=== PATIENT | male | born 1965 | race Caucasian/White ===

== ENCOUNTER → 2018-12-24 | Outpatient (CLI) | payer OTHER ==
[~2018-12-24] MED LIST: AMLO10TA7 PO; ASPI-808 PO; GUAI400T71 PO; HYDR25TA4 PO
--- NOTE | 2018-12-24 10:57 | Diagnostic Imaging Report ---
PROCEDURE: CT chest without contrast. TECHNIQUE: Multiple contiguous axial images were obtained through the chest without the use of intravenous contrast. Auto Exposure Controls were utilized during the CT exam to meet ALARA standards for radiation dose reduction. INDICATION: Chronic cough. COPD. COMPARISON: None FINDINGS: Evaluation of the lung quick demonstrates an irregular somewhat poorly defined spiculated nodular density within the right upper lobe that measures 1.4 x 1.3 cm (image 13, series 3). There is extension of associated linear density to the pleura superolaterally. Additional punctate 3-4 mm micronodules are seen within the left upper lobe (images 8 and 12, series 3). There is no focal consolidation, large effusion, or pneumothorax. Note is made of underlying air trapping predominantly within a subpleural distribution consistent with background emphysematous disease. Cardiomediastinal structures show normal heart size. There is no large pericardial effusion. Main pulmonary arterial trunk is borderline enlarged at 3 cm in diameter. There is mild calcified aortic and coronary atherosclerosis. No pathologically enlarged or morphologically abnormal adenopathy is seen within the mediastinum, jena, nor axilla. Osseous structures show no acute abnormalities. No lytic or blastic bony lesions are seen. Included portions of the upper abdomen show hepatic steatosis and probable cholelithiasis (image 48, series 3). IMPRESSION: 1. Spiculated nodular density within the right upper lobe. Conceivably, this could be on the basis of focal scarring. However, spiculated neoplasm cannot be excluded. Given its somewhat sub-solid appearance, short interval three-month followup is recommended. The lesion may be below CT-PET threshold. 2. Additional punctate micronodules within the left upper lobe. 3. Background subpleural emphysematous disease. 4. Hepatic steatosis. 5. Probable cholelithiasis. 6. Mild calcified aortic and coronary atherosclerotic disease. Dictated by: Dictated on workstation # [id number]
== END ==
LOC: RAD 09:51
PROVIDERS: ATTEND Nurse Practitioner Family
DX: J43.9 Emphysema, unspecified (principal); J98.4 Other disorders of lung; R91.8 Other nonspecific abnormal finding of lung field; K76.0 Fatty (change of) liver, not elsewhere classified; I70.0 Atherosclerosis of aorta; I25.10 Atherosclerotic heart disease of native coronary artery without angina pectoris
CPT/HCPCS: 71250

== ENCOUNTER 2018-12-25 05:45 | Outpatient (CLI) | payer OTHER ==
[~2018-12-25] VITALS: Ht 182.9 cm; Wt 106.6 kg
[2018-12-25] MEDS ORDERED: AMLO10TA7 PO (10:35)
[2018-12-25] MEDS ORDERED: GUAI400T71 PO (10:35)
[2018-12-25] MEDS ORDERED: ASPI-808 PO (10:35)
[2018-12-25] MEDS ORDERED: HYDR25TA4 PO (10:35)
== END 2018-12-25 10:37 | disposition home or self-care (01) ==
LOC: PREOP 05:45
PROVIDERS: ATTEND Internal Medicine Critical Care Medicine
DX: Z01.818 Encounter for other preprocedural examination (principal)

== ENCOUNTER 2018-12-27 06:44 | Day surgery (SDC) | payer OTHER ==
[~2018-12-27] VITALS: Ht 182.9 cm; Wt 106.6 kg
[2018-12-27] MEDS ORDERED: LIDOCAINE PF 1% 2 ML VIAL IJ ONE (06:45)
[2018-12-27] MEDS ORDERED: LIDOCAINE JELLY 2% 6 ML SYRINGE TOP ONE (06:45)
[2018-12-27] MEDS ORDERED: LIDOCAINE PF 2% 5 ML (XYLOCAINE) VIAL INJ ONE (06:45)
[2018-12-27] MEDS ORDERED: LACTATED RINGERS 1,000 ML IV ONE (06:47)
[2018-12-27] MEDS ORDERED: LACTATED RINGERS 1,000 ML IV STA (07:09)
[2018-12-27] MEDS ORDERED: fentaNYL INJECTION 100 MCG/2 ML AMP IVP ONE (07:15)
[2018-12-27] MEDS ORDERED: MIDAZOLAM 2 MG/2 ML (VERSED) VIAL IVP ONE (07:15)
[2018-12-27 07:17] VITALS: BP 141/98
[2018-12-27] MEDS ORDERED: fentaNYL INJECTION 100 MCG/2 ML AMP ONE ×2 (07:43)
[2018-12-27] MEDS ORDERED: MIDAZOLAM 2 MG/2 ML (VERSED) VIAL ONE ×4 (07:43→07:56)
[2018-12-27] MEDS ORDERED: ONDANSETRON 4 MG/2 ML (SDV) Z0FRAN ONE (07:44)
[2018-12-27 08:30] VITALS: BP 115/70
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
[2018-12-27 09:00] VITALS: BP 131/88
--- NOTE | 2018-12-27 09:24 | Diagnostic Imaging Report ---
INDICATION: Status post bronchoscopy. TIME OF EXAM: 08:52 a.m. No prior studies are available for comparison. There is no evidence of pneumothorax, status post bronchoscopy. The lungs are clear apart from some increased density in the right upper lobe medially. There is no effusion. IMPRESSION: No evidence of pneumothorax, status post bronchoscopy. Dictated by: Dictated on workstation # [id number]
[2018-12-27 09:30] VITALS: BP 131/88
--- NOTE | 2018-12-27 14:47 | Diagnostic Imaging Report ---
INDICATION: Fluoroscopy during bronchoscopy. FINDINGS: Fluoroscopy was provided for Dr. Coombs during bronchoscopy. 28 seconds of fluoroscopy was utilized. IMPRESSION: Fluoroscopy during bronchoscopy. Dictated by: Dictated on workstation # [id number]
--- NOTE | 2019-01-16 10:57 | Pulmonary Procedures ---
Pulmonary Procedures Date of Procedure Date of Service: December 27, 2018 (Late note for 12/27) Bronch Bronchoscopy with RML bronchoalveolar lavage (BAL), transbronchial washes and, brushes. Preop DX ILD Postop DX: same Complications: none After informed consent obtained and formal time out pt was sedated using Fenta nyl and Versed. Bronchoscope was advanced through the nare and vocal cords. 1% lidocaine was used to anesthetize vocal cords, epiglottis, diaz, and left/right main stem bronchus. An anatomical tour was undertaken down to the segmental bronchi bilaterally. No endobronchial lesions noted. From the RML a bronchoalveolar lavage (BAL), transbronchial washes and, brushes were obtained. Pt tolerated procedure well. No complications noted. Stat CXR is pending. HALLE LOPEZ DO Jan 16, 2019 10:57
== END 2018-12-27 09:30 | disposition home or self-care (01) ==
LOC: ENDO 06:44
PROVIDERS: ATTEND Internal Medicine Critical Care Medicine
DX: R06.00 Dyspnea, unspecified (principal); J44.9 Chronic obstructive pulmonary disease, unspecified; F17.210 Nicotine dependence, cigarettes, uncomplicated; R06.89 Other abnormalities of breathing; R05 Cough; J30.9 Allergic rhinitis, unspecified; Z79.82 Long term (current) use of aspirin; Z79.899 Other long term (current) drug therapy
CPT/HCPCS: 71045; 87015; 87070; 87101; 87116; 87205; 87206; 88112; 88305; 88312; 94640

== ENCOUNTER → 2018-12-31 | Outpatient (CLI) | payer OTHER | LOC: CARD 12:06 | PROVIDERS: ATTEND Internal Medicine Critical Care Medicine | DX: R06.09 Other forms of dyspnea (principal); R06.89 Other abnormalities of breathing; R05 Cough; J44.9 Chronic obstructive pulmonary disease, unspecified; J30.9 Allergic rhinitis, unspecified; R91.8 Other nonspecific abnormal finding of lung field; Z72.0 Tobacco use | CPT/HCPCS: 93306 ==

== ENCOUNTER → 2019-01-22 | Outpatient (CLI) | payer OTHER ==
[2019-01-22 09:41] LABS: ABG BASE EXCESS 3.7 MMOL/L (-2.5-2.5); ABG OXYGEN SATURATION 95 % (94-100); ABG PCO2 37 MMHG (35-45); ABG PH 7.48 (7.37-7.43); ABG PO2 58 MMHG (79-93); ABG TCO2 28.7 MMOL/L (21.0-31.0); ALLENS TEST YES-POS
[2019-01-22 09:42] LABS: INSPIRED O2 0; PATIENT TEMP 96.2; VENTILATOR NO
== END ==
LOC: LAB 09:08
PROVIDERS: ATTEND Nurse Practitioner Family
DX: R91.8 Other nonspecific abnormal finding of lung field (principal); J30.9 Allergic rhinitis, unspecified; R05 Cough; R06.00 Dyspnea, unspecified; R06.89 Other abnormalities of breathing; J44.9 Chronic obstructive pulmonary disease, unspecified; Z72.0 Tobacco use
CPT/HCPCS: 36600; 82805

== ENCOUNTER → 2019-05-10 | Outpatient (CLI) | payer OTHER, BC ==
[~2019-05-10] MED LIST changes: +HOLD METFORMIN - RECEIVED CONTRAST 20 ML VIAL IV SCH; +IOHEXOL 350 MG/ML 100 ML (OMNIPAQUE 350) VIAL IV ONE; +NS 100 ML (IVPB) BAG IV ONE; +RT-ALBUTEROL SULF 2.5 MG/3 ML PRE-MIX VIAL INH ONE; +RT-ALBUTEROL SULF 2.5 MG/3 ML PRE-MIX VIAL ONE
[2019-05-10 09:12] LABS: BUN/CREATININE RATIO 17; CREATININE SERUM 0.94 MG/DL (0.60-1.30); GFR ESTIMATED > 60
--- NOTE | 2019-05-10 14:19 | Diagnostic Imaging Report ---
PROCEDURE: CT chest with contrast only. TECHNIQUE: Multiple contiguous axial images were obtained through the chest after administration of intravenous contrast. Auto Exposure Controls were utilized during the CT exam to meet ALARA standards for radiation dose reduction. INDICATION: Dyspnea, COPD Exam compared to 12/24/2018. Findings: There is a mixed density nodule in the right upper lobe with a roughly 5 mm central soft tissue component and a peripheral groundglass disease. The peripheral groundglass opacity, having improved in the interim, its central denser element may be 1 mm larger and this change is likely incidental. The process measured in aggregate in its maximal dimension, it is about 1.2 cm long axis, previously 1.4 cm. Relative stability favors benignity, continued followup recommended however repeat chest CT in 6 months' time felt appropriate. There are some micronodularity of the left upper lobe previously on the prior. Those densities show predominant resolution aside from a 2 mm persistent opacity likely incidental. No new mass is found. There is no effusion or pneumothorax no evidence for pneumonia. No thoracic lymphadenopathy. IMPRESSION: A mixed density airspace and solid irregular nodule right upper lobe shows mixed interval changes in the interim when compared to the prior, six-month followup recommended. No substantial change or adverse development. No adenopathy. No effusion. Dictated by: Dictated on workstation # [id number]
== END ==
LOC: RAD 08:37
PROVIDERS: ATTEND Nurse Practitioner Family
DX: J98.4 Other disorders of lung (principal); J30.9 Allergic rhinitis, unspecified; J44.9 Chronic obstructive pulmonary disease, unspecified; R91.8 Other nonspecific abnormal finding of lung field; R91.1 Solitary pulmonary nodule; Z72.0 Tobacco use
CPT/HCPCS: 36415; 71260; 82565; 84520

== ENCOUNTER 2019-07-16 08:21 | Day surgery (SDC) | payer OTHER, BC ==
[2019-07-16] VITALS (10 sets, daily range): BP systolic 127–148; BP diastolic 85–103
[~2019-07-16] VITALS: Ht 182 cm; Wt 105.0 kg
[~2019-07-16 08:21] MED LIST changes: -HOLD METFORMIN - RECEIVED CONTRAST 20 ML VIAL IV SCH; -IOHEXOL 350 MG/ML 100 ML (OMNIPAQUE 350) VIAL IV ONE; -NS 100 ML (IVPB) BAG IV ONE; -RT-ALBUTEROL SULF 2.5 MG/3 ML PRE-MIX VIAL INH ONE; -RT-ALBUTEROL SULF 2.5 MG/3 ML PRE-MIX VIAL ONE
[2019-07-16] MEDS ORDERED: HEParin (CATH LAB) 2,000 ML IV ONE (08:22)
[2019-07-16] MEDS ORDERED: LIDOCAINE 1% INJ 20 ML 20 ML VIAL ONE ×2 (08:22→10:02)
[2019-07-16] MEDS ORDERED: NS IV 1000 ML 1,000 ML ONE (08:22)
[2019-07-16] MEDS ORDERED: NS IV 1000 ML 1,000 ML IV SCH ×2 (08:30→10:33)
[2019-07-16] MEDS ORDERED: BUDE10.2 IH (08:46)
[2019-07-16] MEDS ORDERED: ASCO500C15 PO (08:46)
[2019-07-16] MEDS ORDERED: RT-ALBUINH IH (08:46)
[2019-07-16] MEDS ORDERED: CETI10TA23 PO (08:46)
[2019-07-16 09:00] LABS: HEMOGLOBIN 16.2 G/DL (13.3-17.7); RED CELL DISTRIBUTION WIDTH 12.6 % (10.0-14.5); WHITE BLOOD COUNT 8.3 10^3/uL (4.3-11.0)
[2019-07-16 09:12] LABS: PROTHROMBIN TIME PATIENT 13.7 SEC (12.2-14.7)
[2019-07-16 09:20] LABS: ALANINE AMINOTRANSFERASE 18 U/L (0-55); ALBUMIN 4.3 GM/DL (3.2-4.5); ALKALINE PHOSPHATASE 80 U/L (40-136); BILIRUBIN,TOTAL 0.7 MG/DL (0.1-1.0); BUN/CREATININE RATIO 14; CALCIUM 8.9 MG/DL (8.5-10.1); CARBON DIOXIDE 28 MMOL/L (21-32); CHLORIDE 104 MMOL/L (98-107); CREATININE SERUM 0.88 MG/DL (0.60-1.30); GFR ESTIMATED > 60; GLUCOSE 121 MG/DL (70-105); SODIUM 143 MMOL/L (135-145)
[2019-07-16] MEDS ORDERED: MIDAZOLAM 5 MG/5 ML (VERSED) VIAL ONE (09:23)
[2019-07-16] MEDS ORDERED: fentaNYL INJECTION 100 MCG/2 ML AMP ONE (09:23)
--- NOTE | 2019-07-16 09:24 | Cardiac Procedure Note-CS/ASA ---
Pre-Procedure Note Pre-Op Procedure Note H&P Reviewed The H&P was reviewed, patient examined and no changes noted. Date H&P Reviewed: Jul 16, 2019 Time H&P Reviewed: 09:23 Conscious Sedation Pre-Proced Time 09:23 ASA Score 3 For ASA 3 and 4: Consider anesthesia and medical clearance. Also, for patients with a history of failed moderate sedation consider anesthesia. Airway Lungs Heart ASA score ASA 1: a normal healthy patient ASA 2: a patient with a mild systemic disease (mid diabetes, controlled hypertension, obesity ASA 3: a patient with a severe systemic disease that limits activity (angina, COPD, prior Myocardial infarction) ASA 4: a patient with an incapacitating disease that is a constant threat to life (CHF, renal failure) ASA 5: a moribund patient not expected to survive 24 hrs. (ruptured aneurysm) ASA 6: a declared brain- patient whose organs are being harvested. For emergent operations, add the letter E after the classification Mallampati Classification Grade 2 Sedation Plan Analgesia, Amnesia, Plan communicated to team members, Discussed options with patient/fam, Discussed risks with patient/fam The patient is an appropriate candidate to undergo the planned procedure, sedation, and anesthesia. The patient immediately re-assessed prior to indication. LATOSHA LINDER MD FACP FAC CCDS Jul 16, 2019 09:24 POS
--- NOTE | 2019-07-16 10:36 | Discharge Inst-Cardiology ---
Discharge Inst-Cardiac Discharge Medications Continued Medications: Albuterol Sulfate (Proair Hfa) 1 Puff Puff 2 PUFF IH Q4H, PUFF 1 PUFF = 90 MCG Amlodipine Besylate (Amlodipine Besylate) 10 Mg Tablet 10 MG PO DAILY, TAB Ascorbic Acid (Vitamin C) 500 Mg Capsule.er 500 MG PO DAILY, CAP Aspirin (Aspirin) 325 Mg Tablet 325 MG PO DAILY, TAB Budesonide/Formoterol Fumarate (Symbicort 160-4.5 Mcg Inhaler) 10.2 Gm Hfa.aer.ad 2 PUFF IH BID, INHALER Cetirizine HCl (Cetirizine HCl) 10 Mg Tab.chew 10 MG PO DAILY, TAB Guaifenesin (Guaifenesin) 400 Mg Tablet 400 MG PO DAILY, TAB Hydrochlorothiazide (Hydrochlorothiazide) 25 Mg Tablet 25 MG PO DAILY, TAB Patient Instructions Patient Instructions: no smoking LATOSHA LINDER MD FACP FAC CCDS Jul 16, 2019 10:36 POS
--- NOTE | 2019-07-16 10:36 | Discharge Inst-Post CATH ---
Discharge Inst-CATH/EP Post Cardiac Cath/EP D/C Inst Follow Up/Plan F/u with Dr Mendez next week <b>CARDIAC CATH/EP PROCEDURE DISCHARGE INSTRUCTIONS</b> ACTIVITY * Go Home directly and rest. * Limit activity of the leg (or wrist if it was used) for 7 days including aerobics, swimming, jogging, bicycling, etc. * Restrict stair-climbing for 7 days if possible, if not, climb up with your non-cath leg, then bring together on the same step. * Avoid lifting, pushing, pulling or excessive movement of the affected extremity for 7 days. * Customary sexual activity may be resumed after 2 days-use caution not to use a position that strains or causes pain to the affected extremity. * No driving for 24 hours. * NO SMOKING. * Avoid straining for bowel movements for 7 days. * Gentle walking on level ground is allowed. * Returning to work will depend on the type of procedure and the results. Your doctor will discuss this with you. CALL YOUR DOCTOR FOR ANY OF THE FOLLOWING: *If bleeding from the puncture site occurs- Apply gentle pressure to site with clean cloth and call your doctor or EMS. * If a knot or lump forms under the skin, increases in size, or causes pain. * If bruising appears to be worsening or moving further down your leg instead of disappearing. * Temperature above 101 F. CARE OF YOUR GROIN INCISION; * Bruising or purple discoloration of the skin near the puncture site is common. * You may shower only, no bathtub bathing for 5 days. Be careful to avoid slipping as your leg may feel stiff. * If a closure device was used on your femoral artery, please see the attached guide regarding care of the device and your leg. * Leave dressing on FOR 24 hours. CARE OF YOUR WRIST INCISION; * Bruising or purple discoloration of the skin near the puncture site is common. * You may shower. * DO NOT submerge wrist. * Leave dressing on FOR 24 hours. LATOSHA MENDEZ MD FAC FAC CCDS Jul 16, 2019 10:36 POS
[2019-07-16] MEDS ORDERED: PATIENT MAY USE OWN MEDS, ALL PO SCH (10:45)
--- NOTE | 2019-07-16 13:04 | CARDIAC CATHETERIZATION ---
DATE OF SERVICE: 07/16/2019 CARDIAC CATHETERIZATION INDICATIONS: The patient is a 54-year-old man who has had syncope. He had multiple coronary artery disease risk factors that include chronic tobacco use and hypertension. Cardiac catheterization was carried out today to evaluate for coronary artery disease and cardiomyopathy as the potential basis for his syncope. Informed consent was obtained. DESCRIPTION OF PROCEDURE: He was brought to the cardiac catheterization laboratory in a fasting state. Right groin was prepared and draped in the usual sterile fashion. Lidocaine 1% was used for local anesthesia. Modified Seldinger technique was used to advance a 5-Comoran sheath in right femoral artery, 5-Comoran JL4.5 catheter was used for left coronary angiography. A 5-[place]or[place] JR4 catheter was used for right coronary angiography. A 5-Comoran pigtail catheter was used for left heart catheterization, left ventricular angiography. He tolerated the procedure well. Angiography of the right femoral artery was carried out through the sheath. Mynx was used to achieve hemostasis. HEMODYNAMICS: Left ventricular end-diastolic pressure following coronary angiography was 14 mmHg. There was no significant pressure gradient on pullback across the aortic valve. Ascending aortic pressure was 137/90 with a mean of 114 mmHg. CORONARY ANGIOGRAPHY: Left main coronary artery, left anterior descending artery, left circumflex artery, right coronary artery do not exhibit any angiographically significant coronary artery disease. Right coronary artery is dominant. LEFT VENTRICULAR ANGIOGRAPHY: Left ventricular angiography was carried out in right anterior oblique projection. Global left ventricular systolic function is normal. Left ventricular ejection fraction is estimated to be 55-60%. CONCLUSIONS: 1. No angiographically significant coronary artery disease. 2. Normal global left ventricular systolic function with ejection fraction 55-60%. 3. Mild elevation of left ventricular end-diastolic pressure. DISCUSSION AND RECOMMENDATIONS: Based on results of the study, it appears appropriate to continue a conservative approach. Outpatient followup is advised. For further evaluation of syncope, implantable loop recorder implantation is advised. Job ID: [id number] DocumentID: [id number] Dictated Date: 07/16/2019 10:18:35 Panel Machine Tender Date: 07/16/2019 13:04:09 Dictated By: LATOSHA LINDER MD, MA, FACP, FACC,
--- NOTE | 2019-07-16 15:37 | OPERATIVE REPORT ---
DATE OF SERVICE: 07/16/2019 PREOPERATIVE DIAGNOSIS: Syncope. POSTOPERATIVE DIAGNOSIS: Syncope. PROCEDURE: Implantable loop recorder implantation. DESCRIPTION OF PROCEDURE: Implantable loop recorder implantation was carried out after having obtained an informed consent. The left prepectoral area was prepared and draped in the usual sterile fashion. Lidocaine 1% was used for local anesthesia. Tools provided with the [employer] LINQ implantable loop recorder were used to make a subcutaneous pocket anterior to the left fourth intercostal space into which the device was placed and the wound edges were closed using Dermabond and Steri-Strips. The serial number of the devices are [id number]. Job ID: [id number] DocumentID: [id number] Dictated Date: 07/16/2019 10:20:34 Powder Blender Date: 07/16/2019 15:36:27 Dictated By: LATOSHA LINDER MD, MA, FACP, FACC,
--- OUTSIDE RECORDS SUMMARY | 2019-08-10 05:26 | XMS REPORT | Continuity of Care Document ---
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 08:00 Sputum Gram stain 12-28-18 06. NRG Mycobacterium species detection by organ ism specific culture - 12/27/18 08:00 QUANTITY OF GROWTH . NRG Mycobacterium species detection by organism specific c ulture SEE COMMEN NRG Bacteria identification in bronchial spe cimen by aerobe culture - 12/27/18 08:00 Bacteria identification in bronchial specimen by aerob e culture NG NRG Fungus culture - 12/27/18 08:00 Fungus culture NG NRG Sputum Gram stain - 12/27/18 08:01 Sputum Gram stain 12-28-18, 06. NRG Mycobacterium species detection by organ ism specific culture - 12/27/18 08:01 QUANTITY OF GROWTH . NRG Mycobacterium species detection by organism specific c ulture SEE COMMEN NRG Bacteria identification in bronchial spe cimen by aerobe culture - 12/27/18 08:01 Bacteria identification in bronchial specimen by aerob e culture NG NRG Fungus culture - 12/27/18 08:01 Fungus culture NG NRG Arterial blood gas measurement - 9 09:34 Blood pCO2 37 mm[Hg] 35-45 Blood pO2 58 mm[Hg] 79-93 Arterial blood bicarbonate measurement (moles/volume) 27 mmol/L 23-27 Arterial blood base excess by calculation 3.7 mmol /L -2.5-2.5 Arterial blood oxygen saturation measurement 95 % 94-100 * Inhaled oxygen flow rate 0 NRG Arterial blood pH measurement with patient temperature correction 7.48 7.37-7.43 Arterial blood carbon dioxide, total measurement (mole s/volume) 28.7 mmol/L 21.0-31.0 Body site R BRACHIAL NRG Assessment of wrist artery patency prior to arterial p uncture YES-POS NRG Setting of ventilation mode NO NR G Measurement of body temperature 96.2 NRG Comprehensive Metabolic Panel - 02/25/19 08:10 Albumin 4.5 g/dL 3.6-5.1 ALP 84 U/L 35-130 ALT 25 U/L 6-45 Anion Gap 15 6-14 AST 35 U/L 2-40 BUN 14 mg/dL 5-25 Calcium 9.6 mg/dL 8.3-10.4 Chloride 103 mmol/L 95-114 CO2 25 mEq/L 22-33 Creat 0.88 mg/dL 0.50-1.50 eGFR 90 mL/min/1.73m2 >59 Globulin 2.9 g/dL 2.3-3.5 Glucose 121 mg/dL 70-110 Osmo 289 280-295 Potassium 4.0 mmol/L 3.5-5.3 Sodium 139 mmol/L 134-148 TBil 0.5 mg/dL 0.2-1.2 TP 7.4 g/dL 6.0-8.3 MRSA Screen - 02/25/19 08:10 FINAL CULTURE RESULTS MRSA Negative Nasal Culture CBC with Auto Diff - 02/28/19 09:29 Baso% 0.30 % 0.00-2.50 Eos 0.3 K/uL 0.0-0.7 Eos% 4.2 % 0.0-7.0 Hct 43.9 % 42.0-52.0 Hgb 15.4 g/dL 14.0-17.0 Lym 1.55 K/uL 0.60-3.40 Lym% 25.8 % 10.0-50.0 MCH 33.5 pg 27.0-31.2 MCHC 35.1 g/dL 32.0-36.0 MCV 95.4 fL 80.0-97.0 [place]% 10.6 % 0.0-12.0 MPV 10.9 fL 7.4-10.0 Surjit% 59.1 % 37.0-80.0 Plt 206 K/uL 150-400 RBC 4.60 M/uL 4.20-5.40 RDW 12.0 % 11.6-14.8 WBC 6.01 K/uL 5.00-10.00 Surjit 3.55 K/uL 2.00-6.90 [place] 0.6 K/uL 0.0-0.9 Baso 0.0 K/uL 0.0-0.2 Automated blood complete blood count (he mogram) panel - 07/16/19 08:50 Blood leukocytes automated count (number/volume) 8.3 10*3/uL 4.3-11.0 Blood erythrocytes automated count (number/volume) 4.95 10*6/uL 4.35-5.85 Venous blood hemoglobin measurement (mass/volume) 16.2 g/dL 13.3-17.7 Blood hematocrit (volume fraction) 47 % 40-54 Automated erythrocyte mean corpuscular volume 95 [ foz_us] 80-99 Automated erythrocyte mean corpuscular h emoglobin (mass per erythrocyte) 33 pg 25-34 Automated erythrocyte mean corpuscular h emoglobin concentration measurement (mass/volume) 34 g/dL 32-36 Automated erythrocyte distribution width ratio 12. 6 % 10.0- 14.5 Automated blood platelet count (count/volume) 228 10*3/uL 130-400 Automated blood platelet mean volume measurement 11.0 [foz_us] 7.4-10.4 PT panel in platelet poor plasma by coag ulation assay - 07/16/19 08:50 Prothrombin time (PT) in platelet poor plasma by coagu lation assay 13.7 s 12.2-14.7 INR in platelet poor plasma or blood by coagulation as say 1.0 0.8-1.4 Activated partial thromboplastin time (a PTT) in platelet poor plasma bycoagulation assay - 07/16/19 08:50 Activated partial thromboplastin time (a PTT) in platelet poor plasma bycoagulation assay 39 s 24-35 Comprehensive metabolic panel - 07/16/19 08:50 Serum or plasma sodium measurement (moles/volume) 143 mmol/L 135-145 Serum or plasma potassium measurement (moles/volume) 4.0 mmol/L 3.6-5.0 Serum or plasma chloride measurement (moles/volume) 104 mmol/L 98-107 Carbon dioxide 28 mmol/L 21-32 Serum or plasma anion gap determination (moles/volume) 11 mmol/L 5-14 Serum or plasma urea nitrogen measurement (mass/volume ) 12 mg/dL 7-18 Serum or plasma creatinine measurement (mass/volume) 0.88 mg/dL 0.60-1.30 Serum or plasma urea nitrogen/creatinine mass ratio 14 NRG Serum or plasma creatinine measurement w ith calculation of estimated glomerular filtration rate > NRG Serum or plasma glucose measurement (mass/volume) 121 mg/dL 70-105 Serum or plasma calcium measurement (mass/volume) 8.9 mg/dL 8.5-10.1 Serum or plasma total bilirubin measurement (mass/volu me) 0.7 mg/dL 0.1-1.0 Serum or plasma alkaline phosphatase levar surement (enzymatic activity/volume) 80 U/L 40-136 Serum or plasma aspartate aminotransfera se measurement (enzymatic activity/volume) 23 U/L 5-34 Serum or plasma alanine aminotransferase measurement (enzymatic activity/volume) 18 U/L 0-55 Serum or plasma protein measurement (mass/volume) 7.0 g/dL 6.4-8.2 Serum or plasma albumin measurement (mass/volume) 4.3 g/dL 3.2-4.5 CALCIUM CORRECTED 8.7 mg/dL 8.5-10.1 THYROID STIMULATING HORMONE - 07/16/19 0 8:50 THYROID STIMULATING HORMONE 1.06 u[iU]/mL 0.35-4.94 Methicillin resistant Staphylococcus aur eus (MRSA) screening culture - 07/16/19 08:50 Methicillin resistant Staphylococcus aureus (MRSA) scr eening culture NEG NRG Encounters ACCT No. Visit Date/Time Discharge Status Pt. Type Provider Facility Loc./Unit Complaint [id number] 06/27/2019 15:07:00 06/27/2019 23:59: 00 DIS Outpatient Fouzia Mary [id number] 06/21/2019 08:37:00 06/21/2019 23:59: 00 DIS Outpatient RAMANA MARIE [id number] 03/04/2019 10:50:00 05/29/2019 09:00: 00 DIS Outpatient RAMANA MARIE [id number] 05/22/2019 09:25:00 05/22/2019 23:59: 00 DIS Outpatient RAMANA MARIE [id number] 05/01/2019 10:39:00 05/01/2019 23:59: 00 DIS Outpatient CYNTHIA, RAMANA [id number] 05/01/2019 10:11:00 05/01/2019 23:59: 00 DIS Outpatient CYNTHIA, RAMANA [id number] 04/10/2019 09:26:00 04/10/2019 23:59: 00 DIS Outpatient CYNTHIA, RAMANA [id number] 04/10/2019 09:14:00 04/10/2019 23:59: 00 DIS Outpatient CYNTHIA, RAMANA [id number] 03/15/2019 09:33:00 03/15/2019 23:59: 00 DIS Outpatient CYNTHIA, RAMANA [id number] 03/04/2019 08:29:00 03/04/2019 08:29: 00 CAN Outpatient CYNTHIA, RAMANA [id number] 02/28/2019 00:00:00 02/28/2019 13:09: 00 DIS Outpatient CYNTHIA, RAMANA [id number] 02/25/2019 08:06:00 02/25/2019 23:59: 00 DIS Outpatient CYNTHIA, RAMANA [id number] 02/08/2019 09:12:00 02/08/2019 23:59: 00 DIS Outpatient CYNTHIA, RAMANA [id number] 01/13/2019 00:00:00 01/13/2019 23:59: 00 DIS Outpatient CYNTHIA, RAMANA [id number] 12/28/2018 09:11:00 12/28/2018 23:59: 00 DIS Outpatient CYNTHIA, RAMANA [id number] 12/12/2018 16:11:00 12/12/2018 23:59: 00 DIS Outpatient CYNTHIA, RAMANA [id number] 12/07/2018 09:26:00 12/07/2018 23:59: 00 DIS Outpatient CYNTHIA, RAMANA [id number] 12/02/2018 00:00:00 12/02/2018 23:59: 00 DIS Outpatient CYNTHIA, RAMANA [id number] 11/23/2018 10:50:00 11/23/2018 23:59: 00 DIS Outpatient CYNTHIA, RAMANA [id number] 11/20/2018 11:01:00 11/20/2018 12:51: 00 DIS Outpatient Elizabeth [facility] ER [id number] 08/13/2018 20:35:00 08/14/2018 10:45: 00 DIS Outpatient Pravin [facility] MED-SURG [id number] 11/21/2016 19:18:00 11/21/2016 23:02: 00 DIS Outpatient Mumtaz Retana Loren [facility] enter ER [id number] 12/18/2018 08:02:21 Document Registration [id number] 12/12/2018 14:55:23 Document Registration [id number] 11/27/2018 09:43:01 Document Registration [id number] 11/21/2016 19:26:22 Document Registration [id number] 12/12/2018 16:11:00 Document Registration [id number] 07/16/2019 08:21:00 14:00:00 DIS Outpatient KAILASH FULTON FACC, LATOSHA ROSADO CC DS [facility] CATH HTN,SYNCOPE [id number] 05/21/2019 09:23:00 23:59:59 CLS Preadmit MANIJOSUÉ LAURENTINE E JACKSCREW MAN [facility] RAD COPD [id number] 05/10/2019 08:37:00 23:59:59 CLS Outpatient MANI SRIDEVI E JACKSCREW MAN [facility] RAD DYSPNEA [id number] 01/22/2019 09:08:00 23:59:59 CLS Outpatient MANIJOSUÉ LAURENTINE E JACKSCREW MAN [facility] LAB ABG LAB [id number] 12/31/2018 12:06:00 23:59:59 CLS Outpatient HALLE LOPEZ DO [facility] CARD DYSPNEA [id number] 12/27/2018 06:44:00 09:30:00 DIS Outpatient HALLE LOPEZ DO [facility] ENDO DYSPNEA/COUGH/COPD [id number] 12/25/2018 08:28:00 23:59:59 CLS Preadmit HALLE LOPEZ DO [facility] CARD DYSPNEA [id number] 12/25/2018 08:26:00 23:59:59 CLS Preadmit JOSUÉ SINGLETONINE E JACKSCREW MAN [facility] RT DYSPNEA [id number] 12/25/2018 05:45:00 10:37:00 DIS Outpatient HALLE LOPEZ DO [facility] PREOP BRONCHOSCOPY [id number] 12/24/2018 09:51:00 23:59:59 CLS Outpatient TARIK FREEMAN [facility] RAD CHRONIC COUGH,COPD
== END 2019-07-16 14:00 | disposition home or self-care (01) ==
LOC: CATH 08:21 → SDC 10:42 → CATH 14:00
PROVIDERS: ATTEND Internal Medicine Cardiovascular Disease
DX: R55 Syncope and collapse (principal); J44.9 Chronic obstructive pulmonary disease, unspecified; I10 Essential (primary) hypertension; E66.9 Obesity, unspecified; F17.210 Nicotine dependence, cigarettes, uncomplicated; F43.12 Post-traumatic stress disorder, chronic; F40.210 Arachnophobia; Z91.018 Allergy to other foods; Z88.5 Allergy status to narcotic agent; Z88.1 Allergy status to other antibiotic agents; Z88.2 Allergy status to sulfonamides; Z79.82 Long term (current) use of aspirin; Z79.899 Other long term (current) drug therapy; Z68.31 Body mass index [BMI] 31.0-31.9, adult
CPT/HCPCS: 33285; 36415; 80053; 84443; 85027; 85610; 85730; 87081; 93458

== ENCOUNTER → 2020-01-01 | Outpatient (CLI) | payer OTHER, BC ==
[~2020-01-01] MED LIST changes: +ASCO500C15 PO; +BUDE10.2 IH; +CETI10TA23 PO; -GUAI400T71 PO; +GUAI400T86 PO; +HOLD METFORMIN - RECEIVED CONTRAST 20 ML VIAL IV SCH; +IOHEXOL 350 MG/ML 100 ML (OMNIPAQUE 350) VIAL IV ONE; +NS 100 ML (IVPB) BAG IV ONE; +RT-ALBUINH IH
[2020-01-01 09:19] LABS: BUN/CREATININE RATIO 13; CREATININE SERUM 0.92 MG/DL (0.60-1.30); GFR ESTIMATED > 60
--- NOTE | 2020-01-01 10:39 | Diagnostic Imaging Report ---
EXAMINATION: CT Chest with intravenous contrast. TECHNIQUE: Multiple contiguous axial images were obtained through the chest after the uneventful administration of intravenous contrast. All CT scans use one or more of the following dose optimizing techniques: automated exposure control, MA and/or KvP adjustment based on a patient size and exam type, or iterative reconstruction. INDICATION: COPD COMPARISON: 05/10/2019 FINDINGS: There is no edema or pneumonia. No pleural effusion. No pneumothorax. Right upper lobe nodule measuring 7 mm with irregular margins is again seen with an associated cystic area adjacent to it. The size is unchanged. There is moderate paraseptal emphysema. Heart size is normal. There are mild coronary artery calcifications. No pericardial effusion. Aorta is normal in caliber. There is no axillary or supraclavicular lymphadenopathy. There is no mediastinal lymphadenopathy. Limited views of the upper abdomen show surgical clips in the upper abdomen. There are no suspicious osseus lesions. IMPRESSION: 1. Stable irregular right upper lobe nodule with adjacent cystic change. The morphology is somewhat suspicious and although it has been stable, an additional 12 month follow-up is recommended. Dictated by: Dictated on workstation # [id number]
== END ==
LOC: RAD 08:43
PROVIDERS: ATTEND Nurse Practitioner Family
DX: J44.9 Chronic obstructive pulmonary disease, unspecified (principal); R91.1 Solitary pulmonary nodule; E66.9 Obesity, unspecified; Z72.0 Tobacco use
CPT/HCPCS: 36415; 71260; 82565; 84520

== ENCOUNTER → 2020-10-08 | Outpatient (CLI) | payer BC, OTHER ==
[~2020-10-08] MED LIST changes: +AMLO-251 PO; -AMLO10TA7 PO; -ASCO500C15 PO; +ASCO500C18 PO; -HOLD METFORMIN - RECEIVED CONTRAST 20 ML VIAL IV SCH; -IOHEXOL 350 MG/ML 100 ML (OMNIPAQUE 350) VIAL IV ONE; -NS 100 ML (IVPB) BAG IV ONE
--- NOTE | 2020-10-08 18:51 | Diagnostic Imaging Report ---
PROCEDURE: CT chest without contrast. TECHNIQUE: Multiple contiguous axial images were obtained through the chest without the use of intravenous contrast. Auto Exposure Controls were utilized during the CT exam to meet ALARA standards for radiation dose reduction. DATE: October 08, 2020. COMPARISON: CT chest January 01, 2020. May 10, 2019. December 24, 2018. INDICATION: 55-year-old male, follow-up right upper lobe pulmonary nodule. PROCEDURE: Axial noncontrasted CT images of the chest. Noncontrasted limits the evaluation of the mediastinum and vascular structures. FINDINGS: There are predominantly branching linear opacities in the right upper lobe on axial image 46 and adjacent sequential images with an unchanged appearance since at least December 24, 2018. This likely relates to focal scarring. There are semisolid subcentimeter areas of nodularity in the right lung apex including an example on axial image 30 anteriorly measuring 5 mm in size and one example more posteriorly on the same image measuring 7 mm in size. These are new since January 01, 2020. There are also small areas of similar-appearing subcentimeter nodularity in the left lung apex on axial image 22 as well as additionally present more inferiorly within the left upper lobe. There is a 4 mm right upper lobe pulmonary nodule which may be pleurally based on axial image 75 which is new. There is no additional focal airspace consolidation. There is no pneumothorax. There is no pleural effusion. There are very mild upper lobe findings of emphysema. The heart is not enlarged. There is no pericardial effusion. There is no abnormally enlarged mediastinal lymph node meeting CT size criteria for adenopathy. There is a left axillary lymph node on axial image 23 measuring 12 mm in short axis. This is also a new finding since January 01, 2020. The patient is status post cholecystectomy. Additional evaluation of the imaged portions of the upper abdomen is unremarkable. There is no identified acute bony abnormality. IMPRESSION: 1. New subcentimeter semisolid nodules in the upper lobes, bilaterally, since January 01, 2020. These potentially may be infectious or inflammatory in etiology. Distribution would not be typical for metastatic disease. Recommend correlation clinically and follow-up. 2. Previously noted irregularity in the right upper lobe highly likely relates to focal scarring and is unchanged since at least December 2018. 3. 12 mm left axillary lymph node which is new since comparison exam and is indeterminate in etiology. Dictated by: Dictated on workstation # [id number]
== END ==
LOC: RAD 15:30
PROVIDERS: ATTEND Nurse Practitioner Family
DX: R91.8 Other nonspecific abnormal finding of lung field (principal)
CPT/HCPCS: 71250

== ENCOUNTER → 2021-01-05 | Outpatient (CLI) | payer OTHER ==
[~2021-01-05] MED LIST changes: +CATHETER FLUSH 10 ML SYR IV PRN; +HOLD METFORMIN - RECEIVED CONTRAST 20 ML VIAL IV SCH; +IOHEXOL 350 MG/ML 100 ML (OMNIPAQUE 350) VIAL IV ONE; +NS 100 ML (IVPB) BAG IV ONE
[2021-01-05 09:44] LABS: BUN/CREATININE RATIO 11; CREATININE SERUM 0.81 MG/DL (0.60-1.30); GFR ESTIMATED > 60
--- NOTE | 2021-01-05 12:04 | Diagnostic Imaging Report ---
EXAMINATION: CT chest with intravenous contrast. TECHNIQUE: Multiple contiguous axial images were obtained through the chest after the uneventful administration of intravenous contrast. All CT scans use one or more of the following dose optimizing techniques: automated exposure control, MA and/or KvP adjustment based on patient size and exam type or iterative reconstruction. HISTORY: Abnormal chest CT. COMPARISON: 10/08/2020 FINDINGS: There is no edema or pneumonia. No pleural effusion. No pneumothorax. There is a stable 7 mm average diameter nodule in the right upper lobe. There is a new 10 mm groundglass nodule in the right upper lobe (series 3, image 47). Several vague groundglass nodules in the left upper lobe measuring 3 to 5 mm which are stable. There is no axillary or supraclavicular lymphadenopathy. There is no mediastinal lymphadenopathy. Heart size is normal. There are mild coronary artery calcifications. No pericardial effusion. Aorta is normal in caliber. Limited views of the upper abdomen are unremarkable. There are no suspicious osseous lesions. IMPRESSION: 1. Multiple small pulmonary nodules in the upper lobes are again seen many of which are stable and some of which have improved and others of which are new. Findings likely represent recurrent infection. Dictated by: Dictated on workstation # [id number]
== END ==
LOC: RAD 09:45
PROVIDERS: ATTEND Nurse Practitioner Family
DX: R91.8 Other nonspecific abnormal finding of lung field (principal)
CPT/HCPCS: 36415; 71260; 82565; 84520

== ENCOUNTER → 2021-04-21 | Outpatient (CLI) | payer OTHER ==
[~2021-04-21] MED LIST changes: +RT-ALBUTEROL SULF 2.5 MG/3 ML PRE-MIX VIAL INH ONE
[2021-04-21 11:14] LABS: CREATININE SERUM 0.87 MG/DL (0.60-1.30)
--- NOTE | 2021-04-21 13:45 | Diagnostic Imaging Report ---
PROCEDURE: CT chest with contrast only. TECHNIQUE: Multiple contiguous axial images were obtained through the chest after administration of intravenous contrast. Auto Exposure Controls were utilized during the CT exam to meet ALARA standards for radiation dose reduction. DATE: April 21, 2021. COMPARISON: CT chest January 05, 2021. Additional CT chest imaging dating back to December 24, 2018. INDICATION: 56-year-old male, followup pulmonary nodules. FINDINGS: There are upper lobe findings of paraseptal emphysema. There is no current pulmonary nodule or lung mass. There is a focal area of scarring in the right upper lobe on axial image 44 which is unchanged since the comparison exam. There is no pneumothorax. There is no pleural effusion. There is no additional focal airspace consolidation. The central airways are patent. The heart is not enlarged. There are coronary artery calcifications and additional areas of atherosclerotic disease. There is no pericardial effusion. There is no abnormally enlarged mediastinal, hilar, or axillary lymph node meeting CT size criteria for adenopathy. There is mild diffuse fatty infiltration of the liver. The main, right, and left portal veins are patent. Additional evaluation of the imaged portions of the upper abdomen is unremarkable. There is no identified acute bony abnormality. There are mild disc degenerative changes of the thoracic spine. IMPRESSION: 1. No current pulmonary nodule or lung mass. 2. Mild upper lobe findings of paraseptal emphysema. Focal area of scarring in the right upper lobe, unchanged since at least December 24, 2018. 3. No current acute cardiopulmonary abnormality. 4. Mild diffuse fatty infiltration of the liver. Dictated by: Dictated on workstation # [id number]
== END ==
LOC: RT 11:00
PROVIDERS: ATTEND Nurse Practitioner Family
DX: J44.9 Chronic obstructive pulmonary disease, unspecified (principal); R91.8 Other nonspecific abnormal finding of lung field
CPT/HCPCS: 36415; 71260; 82565; 84520; 94060; 94726; 94729

== ENCOUNTER → 2022-04-15 | Outpatient (CLI) | payer OTHER ==
[~2022-04-15] MED LIST changes: -CATHETER FLUSH 10 ML SYR IV PRN; -CETI10TA23 PO; +CETI10TA24 PO; -HOLD METFORMIN - RECEIVED CONTRAST 20 ML VIAL IV SCH; -IOHEXOL 350 MG/ML 100 ML (OMNIPAQUE 350) VIAL IV ONE; -NS 100 ML (IVPB) BAG IV ONE; -RT-ALBUTEROL SULF 2.5 MG/3 ML PRE-MIX VIAL INH ONE
--- NOTE | 2022-04-15 09:22 | Diagnostic Imaging Report ---
PROCEDURE: MRI lumbar spine without contrast. TECHNIQUE: Multiplanar, multisequence MRI of the lumbar spine was performed without contrast. INDICATION: Low back pain. History of fracture in June 2021. COMPARISON: 04/21/2021. FINDINGS: 5 lumbar type vertebral bodies are visualized with the last well-formed disc space designated L5-S1. There is bone marrow edema in the superior endplate of L2 with associated 30-40% height loss in the superior endplate. Chronic height loss is visualized in the L1 vertebral body. Associated prominent Schmorl's nodes are visualized in the superior endplates of L1 and L2. The conus terminates at the L1 level. No masses are seen associated with the conus or nerve roots of the cauda equina. No epidural collections are identified. Multilevel degenerative changes are seen in the lumbar spine with disc bulges, facet hypertrophy, and buckling of the ligamentum flavum. T12-L1: No significant spinal canal or foraminal stenosis. L1-L2: Broad-based disc bulge, facet hypertrophy, and buckling of ligamentum flavum results in mild spinal canal narrowing and mild right and najv-nb-drresods left foraminal stenosis. L2-L3: No significant spinal canal or foraminal stenosis. L3-L4: No significant spinal canal or foraminal stenosis. L4-L5: Broad-based disc bulge, facet hypertrophy, and buckling of the ligamentum flavum results in moderate spinal canal stenosis and moderate bilateral foraminal stenosis. L5-S1: Broad-based disc bulge, facet hypertrophy, and buckling of the ligamentum flavum results in mild spinal canal narrowing and moderate bilateral foraminal stenosis. Paravertebral soft tissues are unremarkable. IMPRESSION: 1. Likely subacute bone marrow edema in the superior endplate of L2 with 30-40% height loss in the superior endplate. This likely represents a combination of the patient's history of prior fracture and prominent Schmorl's node. A Schmorl's node is also seen in the superior endplate of L1 without associated bone marrow edema. No bony retropulsion is identified. 2. Multilevel degenerative changes in the lumbar spine, greatest at L4-L5 and L5-S1. Dictated by: Dictated on workstation # [id number]
== END ==
LOC: RAD 08:00
PROVIDERS: ATTEND Anesthesiology Pain Medicine
DX: M47.816 Spondylosis without myelopathy or radiculopathy, lumbar region (principal); M47.817 Spondylosis without myelopathy or radiculopathy, lumbosacral region; M51.46 Schmorl's nodes, lumbar region
CPT/HCPCS: 72148

== ENCOUNTER → 2023-07-11 | Outpatient (CLI) | payer OTHER ==
[~2023-07-11] MED LIST changes: +ALBU8.5H6 IH; -RT-ALBUINH IH
--- NOTE | 2023-07-11 16:38 | Diagnostic Imaging Report ---
INDICATION: Bilateral knee pain AP and lateral views of each knee are obtained. In the right knee there are postoperative changes from ACL reconstruction. Patient has had internal fixation of the distal femoral fracture. Fractures appear to be healed. There is mild narrowing of the medial and lateral tibiofemoral joint spaces of the right knee but no acute abnormality seen. Left knee joint spacing is normal. There is no fracture or dislocation. IMPRESSION: Posttraumatic arthritic change right knee joint. No acute abnormality seen. Dictated by: Dictated on workstation # [id number]
--- NOTE | 2023-07-11 16:39 | Diagnostic Imaging Report ---
INDICATION: Bilateral hip pain AP view pelvis and 2 views of each hip are obtained. Pelvic and obturator rings are intact. Hip joint spaces well maintained. There is no fracture or dislocation. IMPRESSION: Unremarkable pelvis and bilateral hips. Dictated by: Dictated on workstation # [id number]
--- NOTE | 2023-07-11 16:40 | Diagnostic Imaging Report ---
HISTORY: Bilateral shoulder pain COMPARISON: None TECHNIQUE: 2 views of the bilateral shoulders. FINDINGS: No acute fracture is seen in the right shoulder. Alignment appears normal. There is minimal degenerative change in the acromioclavicular joint. No acute fracture seen in the left shoulder. Alignment appears normal. There is [id number]-[id number] degenerative change in the glenohumeral joint. secured entrance monitor device is noted. IMPRESSION:. Degenerative changes in the bilateral shoulders with no acute osseous abnormality seen. Dictated by: Dictated on workstation # [id number]
== END ==
LOC: RAD 10:50
PROVIDERS: ATTEND Family Medicine
DX: Z02.71 Encounter for disability determination (principal); M19.012 Primary osteoarthritis, left shoulder; M19.011 Primary osteoarthritis, right shoulder; M25.552 Pain in left hip; M25.551 Pain in right hip; M17.11 Unilateral primary osteoarthritis, right knee; M25.562 Pain in left knee
CPT/HCPCS: 73523